=== PATIENT | male | born 1995 | race Caucasian/White ===

== ENCOUNTER 2021-11-29 00:17 | Emergency (ER) | payer SELFPAY ==
[2021-11-29] MEDS ORDERED: DIPHTH,PERTUSS(ACELL),TET 0.5 ML DISP.SYRIN IM ONE (01:48)
[2021-11-29] MEDS ORDERED: ACETAMINOPHEN 325 MG TABLET (FP) PO ONE (01:48)
[2021-11-29] MEDS ORDERED: ACETAMINOPHEN 500 MG TABLET (FP) PO ONE (01:48)
[2021-11-29] MEDS ORDERED: ACETAMINOPHEN 325 MG TABLET (FP) ONE (02:11)
[2021-11-29 02:18] VITALS: TEMP 97.5; BMI 22.8
[2021-11-29 04:59] VITALS: BP 122/78; PULSE 76
== END 2021-11-29 05:00 | disposition short-term general hospital (02) ==
LOC: JER 00:17
PROC: 3E0234Z Introduction of Serum, Toxoid and Vaccine into Muscle, Percutaneous Approach (ICD-10-PCS; principal; 2021-11-29)
DX: T23.502A Corrosion of first degree of left hand, unspecified site, initial encounter (principal); T23.501A Corrosion of first degree of right hand, unspecified site, initial encounter; X19.XXXA Contact with other heat and hot substances, initial encounter
CPT/HCPCS: 90715; 99284-25; C9803-CS; U0003; U0005